=== PATIENT | male | born 1960 | race Two or more races ===

== ENCOUNTER 2022-11-28 13:27 | Outpatient (REF) | payer MEDICAID, SELFPAY ==
--- NOTE | ~2022-11-28 | XR_ITS ---
EXAMINATION: XR KNEE, RIGHT CLINICAL INFORMATION: Right knee pain following injury. Evaluate for a fracture. COMPARISON: None available. TECHNIQUE: Four views of the right knee. FINDINGS: No acute fracture or dislocation. [id number] medial compartment joint space narrowing with mild bony remodeling and subchondral sclerosis. Tricompartmental marginal osteophytes. No osseous erosion. No abnormal soft tissue calcification. Moderate joint effusion. XR/XR knee RT 4V IMPRESSION: 1. No displaced fracture. 2. Tricompartmental osteoarthritis, most severe within the medial compartment. 3. Moderate joint effusion.
== END 2022-11-28 13:28 | disposition home or self-care (01) ==
LOC: HO.HMGCX 13:27
PROVIDERS: PCP Internal Medicine; Visit Provider Internal Medicine
DX: M25.561 Pain in right knee (principal)
CPT/HCPCS: 73564